=== PATIENT | male | born 1950 | race Two or more races ===

== ENCOUNTER 2024-03-22 09:21 | Emergency (ER) | payer OTHER ==
[~2024-03-22] VITALS: Ht 170.2 cm; Wt 65.8 kg
[2024-03-22] MEDS ORDERED: KETOROLAC TROMETHAMINE 60 MG VIAL IM ONE (09:45)
[2024-03-22 10:09] LABS: HEMATOCRIT 33.9 % (39.0-48.0); MEAN CELL VOLUME 79.7 fL (80.0-100.00); MEAN CORPUSCULAR HEMOGLOBIN 25.8 pg (27.00-32.0); MEAN CORPUSCULAR HGB CONC 32.4 g/dl (32.0-36.0); PLATELET COUNT 231 K/uL (150-450); RED BLOOD COUNT 4.25 M/uL (4.00-6.00); RED CELL DISTRIBUTION WIDTH 17.6 % (11.5-14.5)
[2024-03-22 10:51] LABS: ALBUMIN 3.6 gm/dL (3.4-5.0); BILIRUBIN TOTAL 0.44 mg/dL (0.3-1.2); CALCIUM 8.8 mg/dL (8.5-10.1); CREATININE SERUM 0.96 mg/dL (0.70-1.30); GFR 76.57; GLOBULINA 3.5 G/DL (2.4-3.5); POTASSIUM 4.17 mEq/L (3.5-5.1); TOTAL PROTEIN 7.1 gm/dL (6.4-8.2)
== END 2024-03-22 19:54 | disposition home or self-care (01) ==
LOC: ER 09:23
PROVIDERS: General Practice
DX: K40.20 Bilateral inguinal hernia, without obstruction or gangrene, not specified as recurrent (principal)

== ENCOUNTER 2024-04-23 05:55 | Day surgery (SDC) | payer OTHER ==
[2024-04-20 16:41] LABS: RH POSITIVE
[2024-04-23] MEDS ORDERED: CEFAZOLIN SODIUM 1,000 MG VIAL IV ONE (11:00)
[2024-04-23] MEDS ORDERED: SUGAMMADEX SODIUM 200 MG/2 ML VIAL IV ONE (12:00)
[2024-04-23] MEDS ORDERED: MORPHINE SULFATE 4 MG/ML VIAL IV ONE ×2 (13:00→13:30)
== END 2024-04-23 17:55 | disposition home or self-care (01) ==
LOC: CIR.AMB 05:55
PROVIDERS: ATTEND Surgery
DX: K40.20 Bilateral inguinal hernia, without obstruction or gangrene, not specified as recurrent (principal); Z88.6 Allergy status to analgesic agent
CPT/HCPCS: 49650; C1781

== ENCOUNTER 2024-09-06 09:43 | Emergency (ER) | payer OTHER ==
[~2024-09-06] VITALS: Ht 170.2 cm; Wt 59.0 kg
[2024-09-06] MEDS ORDERED: ORPHENADRINE CITRATE 100 MG TABLET PO ONE (10:30)
== END 2024-09-06 13:48 | disposition home or self-care (01) ==
LOC: ER 09:43
DX: G89.11 Acute pain due to trauma (principal); M25.562 Pain in left knee; Z88.6 Allergy status to analgesic agent

== ENCOUNTER 2024-12-26 10:06 | Emergency (ER) | payer OTHER ==
[~2024-12-26] VITALS: Ht 170.2 cm; Wt 63.5 kg
[2024-12-26 10:39] VITALS: BP 135/82; O2SAT 100
[2024-12-26] MEDS ORDERED: SAW PALMETTO160 MG PO (10:41)
[2024-12-26] MEDS ORDERED: GALZIN25 MG (10:41)
[2024-12-26] MEDS ORDERED: CEFAZOLIN SODIUM 1,000 MG VIAL IM STA (12:05)
[2024-12-26] MEDS ORDERED: TETANUS & DIPHTHERIA TOX,ADULT 0.5 ML VIAL IM STA (12:05)
== END 2024-12-26 14:03 | disposition home or self-care (01) ==
LOC: ER 10:11
DX: S01.81XA Laceration without foreign body of other part of head, initial encounter (principal); X58.XXXA Exposure to other specified factors, initial encounter; Y93.89 Activity, other specified; Y92.018 Other place in single-family (private) house as the place of occurrence of the external cause; Y99.9 Unspecified external cause status; Z88.8 Allergy status to other drugs, medicaments and biological substances

== ENCOUNTER 2025-01-10 13:06 | Emergency (ER) | payer OTHER ==
[~2025-01-10 13:06] MED LIST: GALZIN25 MG; SAW PALMETTO160 MG PO
== END 2025-01-10 14:15 | disposition home or self-care (01) ==
LOC: ER 13:06
DX: Z48.02 Encounter for removal of sutures (principal); Z88.8 Allergy status to other drugs, medicaments and biological substances